=== PATIENT | female | born 1980 | race Two or more races ===

== ENCOUNTER → 2018-01-20 15:24 | Outpatient (CLI) | payer OTHER ==
[~2018-01-20 15:24] MED LIST: COREG CR10 MG; LEVAQUIN750 MG PO; MEDROLPACK PO; XOPENEX HFA15 GM IH; XOPENEX0.63 MG/3 IH
== END | disposition home or self-care (01) ==
LOC: LAB 15:24
DX: J11.1 Influenza due to unidentified influenza virus with other respiratory manifestations (principal)

== ENCOUNTER 2018-05-30 06:51 | Emergency (ER) | payer OTHER ==
[~2018-05-30] VITALS: Ht 162.6 cm; Wt 99.8 kg
[2018-05-30] MEDS ORDERED: COZAAR50 MG (07:13)
== END 2018-05-30 08:19 | disposition home or self-care (01) ==
LOC: ER 06:51
DX: H10.89 Other conjunctivitis (principal)

== ENCOUNTER 2018-06-17 14:11 | Emergency (ER) | payer OTHER ==
[~2018-06-17] VITALS: Ht 162.6 cm; Wt 99.8 kg
[~2018-06-17 14:11] MED LIST changes: +COZAAR50 MG
== END 2018-06-17 19:20 | disposition home or self-care (01) ==
LOC: ER 14:11
DX: N20.0 Calculus of kidney (principal); R10.31 Right lower quadrant pain